=== PATIENT | female | born 2000 | race Caucasian/White ===

== ENCOUNTER 2024-06-13 14:07 | Outpatient (CLI) | payer OTHER | END 2024-06-13 14:25 | disposition home or self-care (01) | LOC: NST 14:07 | PROVIDERS: ATTEND Obstetrics & Gynecology Gynecology | DX: Z34.82 Encounter for supervision of other normal pregnancy, second trimester (principal) ==

== ENCOUNTER 2024-08-17 10:49 | Inpatient (IN) | payer OTHER ==
[~2024-08-17] VITALS: Ht 152.4 cm; Wt 73.5 kg
[2024-09-04 14:00] VITALS: BP 104/68; O2SAT 99
[2024-09-04 14:44] LABS: HEMATOCRIT 37.6 % (36.0-45.00); MEAN CELL VOLUME 85.2 fL (80.00-100.00); MEAN CORPUSCULAR HEMOGLOBIN 29.5 pg (27.00-32.0); MEAN CORPUSCULAR HGB CONC 34.7 g/dl (32.0-36.0); PLATELET COUNT 208 K/uL (150-450); RED BLOOD COUNT 4.41 M/uL (4.00-6.00); RED CELL DISTRIBUTION WIDTH 13.8 % (11.5-14.5)
[2024-09-04] MEDS ORDERED: RINGERS SOLUTION,LACTATED 1,000 ML IV SCH (14:45)
[2024-09-04] MEDS ORDERED: PRENATAL CAPLE1 EAC1 PO (14:47)
[2024-09-04 14:56] LABS: PH,URINE 6.5 (5.0-8.0); URINE APPEARANCE Clear; URINE BILIRRUBIN Negative (NEGATIVE); URINE BLOOD Negative; URINE COLOR Yellow; URINE GLUCOSE Negative (NEGATIVE); URINE KETONE 15 (NEGATIVE); URINE LEUKOCYTE Trace; URINE NITRATE Negative; URINE PROTEIN Negative (NEGATIVE); URINE UROBILINOGEN 0.2 E.U./dl
[2024-09-04 14:57] LABS: URINE BACTERIA 369.1 uL (0.0-1933); URINE EPITHELIAL CELLS 13.2 uL (0.0-38.8); URINE WBC 14.9 uL (0.0-23.2)
[2024-09-04 15:06] LABS: INR < 0.93; PARTIAL THROMBOPLASTIN TIME 26.2 SECONDS (22.0-34.0); PROTHROMBIN TIME 10.1 SECONDS (9.0-11.5)
[2024-09-04 15:06] LABS: URINE RBC 1.9 uL (0.0-20.8)
[2024-09-04 15:21] LABS: ALBUMIN 3.1 gm/dL (3.4-5.0); BILIRUBIN TOTAL 0.44 mg/dL (0.3-1.2); CREATININE SERUM 0.57 mg/dL (0.55-1.02); GFR 130.31; GLOBULINA 3.9 G/DL (2.4-3.5); POTASSIUM 4.11 mEq/L (3.5-5.1)
[2024-09-04 15:37] VITALS: BP 100/63
[2024-09-04 19:14] VITALS: BP 116/57
[2024-09-05] VITALS: BP 99/55
[2024-09-05 03:45] VITALS: BP 98/60
[2024-09-05 07:27] VITALS: BP 106/58
[2024-09-05 11:45] VITALS: BP 114/72
[2024-09-05 15:57] VITALS: BP 116/63
[2024-09-05] MEDS ORDERED: MISOPROSTOL 25 MCG TABLET VAG STA (16:42)
[2024-09-05 19:53] VITALS: BP 111/71
[2024-09-06 00:02] VITALS: BP 112/58
[2024-09-06] MEDS ORDERED: OXYTOCIN 500 ML IV ONE (07:30)
[2024-09-06 07:52] VITALS: BP 125/68
[2024-09-06 10:53] VITALS: BP 129/74
[2024-09-06] MEDS ORDERED: OXYTOCIN 1,000 ML IV NR (15:15)
[2024-09-06] MEDS ORDERED: MORPHINE SULFATE 4 MG/ML CARTRIDGE IV PRN (15:15)
[2024-09-06] MEDS ORDERED: RINGERS SOLUTION,LACTATED 1,000 ML IV SCH (15:15)
[2024-09-06 16:00] VITALS: BP 123/68
[2024-09-06] MEDS ORDERED: CITRIC ACID/SODIUM CITRATE 30 ML BLIST.PACK PO STA (16:33)
[2024-09-06] MEDS ORDERED: CEFOXITIN SODIUM 2,000 MG VIAL IV STA (16:33)
[2024-09-06] MEDS ORDERED: GABAPENTIN 300 MG CAPSULE PO SCH (17:00)
[2024-09-06] MEDS ORDERED: SIMETHICONE 125 MG CAPSULE PO SCH (17:00)
[2024-09-06] MEDS ORDERED: ONDANSETRON HCL 2 MG/ML VIAL IV SCH (18:00)
[2024-09-06] MEDS ORDERED: ACETAMINOPHEN 500 MG GEL..CAP PO SCH (18:00)
[2024-09-06] MEDS ORDERED: KETOROLAC TROMETHAMINE 30 MG VIAL IV SCH (18:00)
[2024-09-06] MEDS ORDERED: MORPHINE SULFATE 4 MG/ML VIAL IV ONE (18:45)
[2024-09-06] MEDS ORDERED: KETOROLAC TROMETHAMINE 30 MG VIAL IM ONE (19:30)
[2024-09-06] MEDS ORDERED: PROMETHAZINE HCL 25 MG/ML AMPUL IM PRN (20:00)
[2024-09-06] MEDS ORDERED: MEPERIDINE HCL/PF 50 MG/ML VIAL IM PRN (20:00)
[2024-09-06 22:40] VITALS: BP 114/67
[2024-09-06 23:07] LABS: HEMATOCRIT 33.1 % (36.0-45.00); HEMOGLOBIN 11.4 g/dL (12.0-15.00); MEAN CELL VOLUME 84.2 fL (80.00-100.00); MEAN CORPUSCULAR HGB CONC 34.5 g/dl (32.0-36.0); PLATELET COUNT 179 K/uL (150-450); RED BLOOD COUNT 3.93 M/uL (4.00-6.00); RED CELL DISTRIBUTION WIDTH 13.7 % (11.5-14.5)
[2024-09-07] VITALS: BP 113/62
[2024-09-07] MEDS ORDERED: CEFOXITIN SODIUM 2,000 MG VIAL IV SCH (01:00)
[2024-09-07 07:18] LABS: HEMATOCRIT 33.7 % (36.0-45.00); HEMOGLOBIN 11.9 g/dL (12.0-15.00); MEAN CELL VOLUME 85.3 fL (80.00-100.00); MEAN CORPUSCULAR HEMOGLOBIN 30.1 pg (27.00-32.0); MEAN CORPUSCULAR HGB CONC 35.3 g/dl (32.0-36.0); PLATELET COUNT 182 K/uL (150-450); RED BLOOD COUNT 3.95 M/uL (4.00-6.00); RED CELL DISTRIBUTION WIDTH 13.4 % (11.5-14.5)
[2024-09-07 08:00] VITALS: BP 107/67
[2024-09-07] MEDS ORDERED: KETOROLAC TROMETHAMINE 10 MG TABLET PO SCH (08:00)
[2024-09-07] MEDS ORDERED: OxyCODONE HCL 5 MG TABLET (ROXICODONE) PO PRN (08:00)
[2024-09-07] MEDS ORDERED: DOCUSATE SODIUM 100MG CAP PO SCH (09:00)
[2024-09-07] MEDS ORDERED: OxyCODONE HCL/APAP UD (PERCOCET) PO SCH (09:00)
[2024-09-07 16:00] VITALS: BP 115/74
[2024-09-07] MEDS ORDERED: OXYTOCIN 20 UNITS/1000ML RL PIGGYBAG IV ONE (17:45)
[2024-09-07] MEDS ORDERED: ERYTHROMYCIN BASE OPHT 1GM EACH TUBE OP ONE (17:45)
[2024-09-08 01:44] VITALS: BP 95/67
[2024-09-08] MEDS ORDERED: KETO10TA2 PO (07:51)
[2024-09-08] MEDS ORDERED: OXYC1TAB9 PO (07:51)
[2024-09-08 08:48] VITALS: BP 105/66
[2024-09-08 16:00] VITALS: BP 113/73
[2024-09-08 20:00] VITALS: BP 108/71
[2024-09-09 02:16] VITALS: BP 109/71
[2024-09-09 08:00] VITALS: BP 117/74
== END 2024-09-09 14:49 | disposition home or self-care (01) | DRG 788 ==
LOC: LDR 09-04 13:18 → O/R 09-04 13:18 → LDR 09-05 09:08 → O/R 09-06 17:07 → OB/GYN 09-06 20:11
PROVIDERS: Obstetrics & Gynecology; Obstetrics & Gynecology Maternal & Fetal Medicine; ADMIT Obstetrics & Gynecology Gynecology; ATTEND Obstetrics & Gynecology Gynecology
PROC: 4A1HXCZ Monitoring of Products of Conception, Cardiac Rate, External Approach (ICD-10-PCS; 2024-09-04)
PROC: 3E0P7VZ Introduction of Hormone into Female Reproductive, Via Natural or Artificial Opening (ICD-10-PCS; 2024-09-05)
PROC: 3E033VJ Introduction of Other Hormone into Peripheral Vein, Percutaneous Approach (ICD-10-PCS; 2024-09-06)
PROC: 10D00Z1 Extraction of Products of Conception, Low, Open Approach (ICD-10-PCS; principal; 2024-09-06 18:00)
DX: O36.5930 Maternal care for other known or suspected poor fetal growth, third trimester, not applicable or unspecified (principal); O62.0 Primary inadequate contractions; Z3A.39 39 weeks gestation of pregnancy; Z37.0 Single live birth; Z20.822 Contact with and (suspected) exposure to COVID-19

== ENCOUNTER 2024-08-29 13:16 | Outpatient (CLI) | payer OTHER | END 2024-08-29 14:33 | disposition home or self-care (01) | LOC: NST 13:16 | PROVIDERS: ATTEND Obstetrics & Gynecology | DX: Z34.83 Encounter for supervision of other normal pregnancy, third trimester (principal) ==

== ENCOUNTER 2024-09-01 11:59 | Outpatient (CLI) | payer OTHER | END 2024-09-01 12:35 | disposition home or self-care (01) | LOC: NST 11:59 | PROVIDERS: ATTEND Obstetrics & Gynecology | DX: Z34.83 Encounter for supervision of other normal pregnancy, third trimester (principal) ==